=== PATIENT | male | born 1990 | race Caucasian/White ===

== ENCOUNTER 2017-01-12 18:49 | Emergency (ER) | payer OTHER ==
[~2017-01-12] VITALS: Ht 188 cm; Wt 104.3 kg
[2017-01-12 18:58] VITALS: BP 157/94
--- NOTE | 2017-01-12 19:09 | NUR ---
PATIENT LEFT WITHOUT BEING SEEN BY DR. Ramos. NO FURTHER CARE PROVIDED FOR PATIENT.
== END 2017-01-12 19:09 | disposition left against medical advice (07) ==
LOC: MED 18:49
DX: R07.9 Chest pain, unspecified (principal); Z53.21 Procedure and treatment not carried out due to patient leaving prior to being seen by health care provider

== ENCOUNTER 2021-08-17 14:27 | Emergency (ER) | payer OTHER ==
[~2021-08-17] VITALS: Ht 188 cm; Wt 113.4 kg
[2021-08-17 14:29] VITALS: BP 161/101
--- NOTE | 2021-08-17 14:37 | NUR ---
PATIENT AMBULATED TO BED 11.
--- NOTE | 2021-08-17 14:40 | NUR ---
31 Y/O MALE C/O LEFT SIDE & RLQ ABDOMINAL PAIN WITH CONSTIPATION X 1 WEEK. PT REPORTS LBM X3 DAYS AGO AFTER TAKING A LAXATIVE. PT DENIES PAIN AT THIS TIME. DENIES DYSURIA, N/V. PT A/O X4 WITH EVEN AND UNLABORED RESPIRATIONS PMH:DENIES NKDA
--- NOTE | 2021-08-17 14:47 | NUR ---
DR ROMEO AT BEDSIDE EVALUATING PT
[2021-08-17] MEDS ORDERED: MIRABULK PO (15:00)
[2021-08-17] MEDS ORDERED: IBUP-2213 PO (15:00)
[2021-08-17] MEDS ORDERED: NACL 0.9% 1,000 ML IV SCH (15:05)
--- NOTE | 2021-08-17 16:04 | NUR ---
PT BACK FROM CT
[2021-08-17 16:11] LABS: ALBUMIN 4.1 g/dL (3.4-5.0); ANION GAP 12.7 (8-16); CARBON DIOXIDE 30.7 mmol/L (21-32); CREATININE 1.1 mg/dL (0.6-1.3); POTASSIUM 3.4 mmol/L (3.5-5.1); TOTAL BILIRUBIN 0.5 mg/dL (0.0-1.0)
[2021-08-17 16:23] LABS: BASOPHILS # (AUTO) 0.1 K/uL (0.00-0.22); BASOPHILS % (AUTO) 0.9 % (0.0-2.0); EOSINOPHILS # (AUTO) 0.3 K/uL (0-0.4); EOSINOPHILS % (AUTO) 2.7 % (0.0-4.0); HEMATOCRIT 44.1 % (36-52); HEMOGLOBIN 15.2 g/dL (12.0-18.0); LYMPHOCYTES # (AUTO) 3.6 K/uL (2.0-11.5); LYMPHOCYTES % (AUTO) 33.1 % (20.5-51.1); MEAN CORPUSCULAR HEMOGLOBIN 31 pg (27-31); MEAN CORPUSCULAR HGB CONC 34 g/dL (33-37); MEAN CORPUSCULAR VOLUME 89.5 fL (80-94); MONOCYTES # (AUTO) 0.9 K/uL (0.8-1.0); MONOCYTES % (AUTO) 8.3 % (1.7-9.3); PLATELET COUNT (AUTO) 348 K/uL (140-450); RED BLOOD CELL COUNT(AUTO) 4.93 MIL/uL (4.20-6.10); RED CELL DISTRIBUTION WIDTH 13.4 % (11.6-13.7)
[2021-08-17 16:40] VITALS: BP 161/101
--- NOTE | 2021-08-17 16:40 | NUR ---
Patient discharged with v/s stable. Written and verbal after care instructions given and explained. Patient alert, oriented and verbalized understanding of instructions. Ambulatory with steady gait. All questions addressed prior to discharge. ID band removed. Patient advised to follow up with PMD. Rx of MIRALAX, IBUPROFEN given. Patient educated on indication of medication including possible reaction and side effects. Opportunity to ask questions provided and answered.
== END 2021-08-17 14:37 | disposition home or self-care (01) ==
LOC: MED 14:27
DX: K59.00 Constipation, unspecified (principal); Z79.899 Other long term (current) drug therapy
CPT/HCPCS: 36415; 74176; 80053; 81002; 83690; 85025; 96360; 99284; J7030

== ENCOUNTER 2022-09-24 10:18 | Emergency (ER) | payer OTHER ==
[~2022-09-24] VITALS: Ht 188 cm; Wt 136.1 kg
[~2022-09-24 10:18] MED LIST: IBUP-2213 PO; MIRABULK PO
[2022-09-24 10:34] VITALS: BP 160/69
--- NOTE | 2022-09-24 10:34 | NUR ---
TO ER BED 2
--- NOTE | 2022-09-24 10:40 | NUR ---
PT RECEIVED, CARE ASSUMED. PT A/OX4. PT PRESENTS SELF TO ER FOR EVALUATION OF HEAD PAIN S/P T/C. NOTED HEAD CONTUSION TO BACK OF HEAD, LEFT SIDE. WILL CONTINUE TO MONITOR
[2022-09-24] MEDS ORDERED: ACETAMINOPHEN EXTRA STRENGTH 500 MG TAB PO ONE (11:05)
[2022-09-24] MEDS ORDERED: IBUPROFEN 800 MG TAB PO ONE (11:05)
[2022-09-24] MEDS ORDERED: ACET-10509 PO (12:01)
[2022-09-24 12:25] VITALS: BP 130/78
== END 2022-09-24 12:25 | disposition home or self-care (01) ==
LOC: MED 10:18
DX: S00.03XA Contusion of scalp, initial encounter (principal); V69.88XA Occupant (driver) (passenger) of heavy transport vehicle injured in other specified transport accidents, initial encounter; Y93.89 Activity, other specified; Y92.89 Other specified places as the place of occurrence of the external cause; Y99.8 Other external cause status
CPT/HCPCS: 70450; 99284